=== PATIENT | male | born 1980 | race Caucasian/White ===

== ENCOUNTER 2016-11-21 12:39 | Emergency (ER) | payer MEDICAID ==
[~2016-11-21] VITALS: Ht 180.3 cm; Wt 144.0 kg
[2016-11-21 12:41] VITALS: Ht 180.3 cm; Wt 144.0 kg
[2016-11-21] MEDS ORDERED: BEN25 PO (14:29)
[2016-11-21] MEDS ORDERED: IBUP800T25 PO (14:29)
[2016-11-21] MEDS ORDERED: CEPH-443 PO (14:29)
[2016-11-21] MEDS ORDERED: SULF1TAB31 PO (14:29)
--- NOTE | 2016-11-21 15:04 | ERD ---
ER Documentation Chief Complaint Date/Time DATE: 11/21/16 TIME: 15:01 Chief Complaint possible insect bite on rt arm and upper back HPI 36-year-old male with no significant past medical history presents the ED complaining of a possible insect bite vs. spider bite on his right arm and upper left back. States that he noticed yesterday. Reports that he has been applying alcohol. States that it is very itchy. Denies any abdominal pain, nausea, vomiting, diarrhea, loss of sensation, loss of range of motion, numbness or tingling. Denies any exposure to pets, new use of soaps, detergents. ROS All systems reviewed and are negative except as per history of present illness. Medications Home Meds Active Scripts Ibuprofen* (Motrin*) 800 Mg Tab, 800 MG PO Q6, #30 TAB take with food Prov:IVON LEON-C 11/21/16 Cephalexin* (Keflex*) 500 Mg Capsule, 500 MG PO QID for 7 Days, CAP Prov:IVON LEON PA-C 11/21/16 Sulfamethoxazole/Trimethoprim* (Bactrim Ds* Tablet) 1 Each Tablet, 1 TAB PO BID for 7 Days, #14 TAB Prov:IVON LEON-C 11/21/16 Diphenhydramine Hcl* (Benadryl*) 25 Mg Cap, 25 MG PO Q6 Y for ITCHING/RASH, #30 TAB Prov:IVON LEON-C 11/21/16 PMhx/Soc Medical and Surgical Hx: pt denies Medical Hx History of Surgery: Yes (APPENDECTOMY) Anesthesia Reaction: No Hx Alcohol Use: No Hx Substance Use: No Hx Tobacco Use: No Smoking Status: Never smoker Physical Exam Vitals Vital Signs Date Time Temp Pulse Resp B/P Pulse Ox O2 Delivery O2 Flow Rate FiO2 11/21/16 12:41 98.4 88 18 172/90 99 Physical Exam Const: Oof-[id number], well-nourished. In no acute distress. Head: Atraumatic, normocephalic Eyes: Normal Conjunctiva without injection ENT: Normal external ear, nose and mouth. Neck: Full range of motion. No meningismus. Resp: Clear to auscultation bilaterally. No wheezing, rhonchi, rales, or crackles. No accessory muscle use. No retractions. Cardio: Regular rate and rhythm, no murmurs Skin: No petechiae or rashes Back: No midline tenderness. No CVA tenderness. Ext: No cyanosis, or edema. Cap refill less than 2 seconds. Distal pulses intact bilaterally. 3 cm nonfluctuant and nonindurated erythematous blanching papule with a slight punctate noted of right arm and left upper back. No erythema, edema, purulent discharge, bleeding noted. Neur: Awake and alert. Normal gait and coordination. Muscle strength 5/5. Sensation intact bilaterally. Psych: Normal Mood and Affect Procedures/MDM This is a 36-year-old male patient with no significant past medical history presents to the ED complaining of an insect bite that started possibly yesterday on his right arm and left upper back. Patient is afebrile and nontoxic-appearing. Patient symptoms are likely due to a possible insect bite. Patient is afebrile and nontoxic-appearing. Patient has normal vital signs. Patient is appropriate for outpatient antibiotics. Low suspicion for scabies, SJS/TEN, erythema multiforme, sepsis, cellulitis, necrotizing fascitis, gangrene , meningococcemia or other emergent conditions. Discharge medications: Ibuprofen, Keflex, Bactrim, Benadryl Follow up with primary care physician in 1-2 days for a wound check. Instructed patient to return to the ED sooner for any worsening symptoms. Patient's questions were answered. Patient understood and agreed with discharge plan. Patient discharged stable. Departure Diagnosis: Primary Impression: Insect bite Encounter type: initial encounter Qualified Code: W57.XXXA - Insect bite, initial encounter Condition: Stable Patient Instructions: Insect Sting/Bite, Infected Referrals: [facility] YOU HAVE RECEIVED A MEDICAL SCREENING EXAM AND THE RESULTS INDICATE THAT YOU DO NOT HAVE A CONDITION THAT REQUIRES URGENT TREATMENT IN THE EMERGENCY DEPARTMENT. FURTHER EVALUATION AND TREATMENT OF YOUR CONDITION CAN WAIT UNTIL YOU ARE SEEN IN YOUR DOCTORS OFFICE WITHIN THE NEXT 1-2 DAYS. IT IS YOUR RESPONSIBILITY TO MAKE AN APPOINTMENT FOR FOLOW-UP CARE. IF YOU HAVE A PRIMARY DOCTOR --you should call your primary doctor and schedule an appointment IF YOU DO NOT HAVE A PRIMARY DOCTOR YOU CAN CALL OUR PHYSICIAN REFERRAL HOTLINE AT IF YOU CAN NOT AFFORD TO SEE A PHYSICIAN YOU CAN CHOSE FROM THE FOLLOWING [facility] [address] [facility] [address] [facility] [address] [facility] [address] [facility] [address] [facility]. [facility]. [address] [facility]. [facility] YOU HAVE RECEIVED A MEDICAL SCREENING EXAM AND THE RESULTS INDICATE THAT YOU DO NOT HAVE A CONDITION THAT REQUIRES URGENT TREATMENT IN THE EMERGENCY DEPARTMENT. FURTHER EVALUATION AND TREATMENT OF YOUR CONDITION CAN WAIT UNTIL YOU ARE SEEN IN YOUR DOCTORS OFFICE WITHIN THE NEXT 1-2 DAYS. IT IS YOUR RESPONSIBILITY TO MAKE AN APPOINTMENT FOR FOLOW-UP CARE. IF YOU HAVE A PRIMARY DOCTOR --you should call your primary doctor and schedule and appointment IF YOU DO NOT HAVE A PRIMARY DOCTOR YOU CAN CALL OUR PHYSICIAN REFERRAL HOTLINE AT . IF YOU CAN NOT AFFORD TO SEE A PHYSICIAN YOU CAN CHOSE FROM THE FOLLOWING [facility]: [facility] [address] [place] [address] [facility] [address] [place] [address] [facility] [address] [place] [address] [facility] URGENT C[facility]/SPECIALTIES Additional Instructions: Follow up in 2 days in your clinic for wound check. You have been given a medicine which may cause drowsiness (Benadryl).DO NOT DRIVE OR OPERATE DANGEROUS MACHINERY while taking this medicine! Call your primary care doctor TOMORROW for an appointment during the next 2-3 days.See the doctor sooner or return here if your condition worsens before your appointment time. IVON LEON PA-C November 21, 2016 15:04
== END 2016-11-21 14:39 | disposition home or self-care (01) ==
LOC: FTE 12:39
DX: S40.861A Insect bite (nonvenomous) of right upper arm, initial encounter (principal); S20.462A Insect bite (nonvenomous) of left back wall of thorax, initial encounter; W57.XXXA Bitten or stung by nonvenomous insect and other nonvenomous arthropods, initial encounter; Y92.9 Unspecified place or not applicable
CPT/HCPCS: 99284

== ENCOUNTER 2018-09-06 12:07 | Emergency (ER) | payer MEDICAID ==
[~2018-09-06] VITALS: Ht 180.3 cm; Wt 151.1 kg
[~2018-09-06 12:07] MED LIST: BEN25 PO; CEPH-443 PO; IBUP800T48 PO; SULF1TAB31 PO
[2018-09-06 12:21] VITALS: BP 169/93; PULSE 99; RESP 18; Ht 180.3 cm; Wt 151.1 kg
[2018-09-06] MEDS ORDERED: PSEU120T11 PO (13:55)
[2018-09-06] MEDS ORDERED: FLUT9.9S NASAL (13:55)
[2018-09-06] MEDS ORDERED: AMOX500C2 PO (13:55)
--- NOTE | 2018-09-06 13:59 | ERD ---
ER Documentation Chief Complaint Chief Complaint bilat ear pain x 1 weeks, sore throat HPI This is a 38-year-old male presents ED with complaints of bilateral ear pain times 1 week. Patient admits to sore throat, runny nose and postnasal drip. Patient admits to some cough in the morning. Denies shortness of breath, trouble breathing, chest pain, nausea, vomiting, diarrhea, constipation, neck pain and all other symptoms. No known drug allergies. ROS All systems reviewed and are negative except as per history of present illness. Medications Home Meds Active Scripts Fluticasone Propionate (Flonase Allergy Relief) 9.9 Ml [place].susp, 1 SPRAY NASAL BID, #1 BOTTLE TO EACH NOSTRIL Prov:RENO RENDON PA-C 09/06/18 Pseudoephedrine Hcl (Sudafe 12-Hour) 120 Mg Tablet.er, 120 MG PO BID PRN for CONGESTION for 5 Days, TAB.SA Prov:RENO RENDON PA-C 09/06/18 Amoxicillin* (Amoxicillin*) 500 Mg Cap, 500 MG PO TID for 10 Days, CAP Prov:RENO RENDONC 09/06/18 Ibuprofen* (Motrin*) 800 Mg Tab, 800 MG PO Q6, #30 TAB take with food Prov:IVON LEON PA-C 11/21/16 Cephalexin* (Keflex*) 500 Mg Capsule, 500 MG PO QID for 7 Days, CAP Prov:IVON LEON-C 11/21/16 Sulfamethoxazole/Trimethoprim* (Bactrim Ds* Tablet) 1 Each Tablet, 1 TAB PO BID for 7 Days, #14 TAB Prov:IVON LEON PA-C 11/21/16 Diphenhydramine Hcl* (Benadryl*) 25 Mg Cap, 25 MG PO Q6 PRN for ITCHING/RASH, #30 TAB Prov:IVON LEONC 11/21/16 PMhx/Soc History of Surgery: Yes (APPENDECTOMY) Anesthesia Reaction: No Hx Alcohol Use: No Hx Substance Use: No Hx Tobacco Use: No FmHx Family History: No diabetes Physical Exam Vitals Vital Signs Date Temp Pulse Resp B/P (MAP) Pulse Ox O2 O2 Flow FiO2 Time Delivery Rate 09/06/18 98.0 99 18 169/93 97 12:21 (118) Physical Exam Physical Exam Vitals signs: Reviewed by me. General: Well developed, well nourished, in no acute distress. Patient is awake and alert. Head: Normocephalic, atraumatic. Eyes: Normal conjunctiva, Pupils PERRLA, EOM intact grossly ENT: Pharynx is clear, Moist mucous membranes, external ears, nose and mouth normal, left tympanic membrane is visualized and is bulging and is erythematous, right tympanic membrane is not visualized due to cerumen in ear canal. Oropharynx is clear with no oropharyngeal erythema, no tonsillar adenopathy, exudate or erythema, normal nasal mucosa with copious amounts of clear rhinorrhea, Respiratory: Clear to auscultation bilaterally with no wheezing, rhonchi, rales, no distress Cardiovascular: RRR, no murmurs, rubs, or gallops Skin: warm and dry, No rash Psych: Normal mood Procedures/MDM ER COURSE: The patient was stable throughout ED course. I kept the patient and/or family informed of laboratory and diagnostic imaging results throughout the emergency room course. The patient was promptly evaluated and a treatment plan was devised based on H&P and other data. This plan was discussed with the patient who agreed and had no further questions or concerns prior to discharge. MEDICAL DECISION MAKIN-year male presents ED with ear pain times 1 week. Physical examination is remarkable for otitis media and rhinorrhea. At this time there is no ENT emergency. No evidence of retropharyngeal abscess, mastoiditis, peritonsillar abscess, liquids, epiglottitis, sepsis, meningitis, among others. Vitals are stable patient can be managed with close outpatient follow-up. Advised patient follow-up with primary care next 48 hours. Return to ED with any worsening symptoms DISPOSITION PLAN: We discussed follow up with the patient's primary care doctor within 24 to 48 hours. Patient counseled regarding my diagnostic impression and care plan. Prior to discharge all questions answered. Pt agrees with treatment plan and understands strict return precautions. Precautionary instructions provided including instructions to return to the ER if not improving or for any worsening or changing symptoms or concerns. SPECIALIST FOLLOW UP RECOMMENDED: None Patient has been advised to follow up with primary care in 1-2 days. Disclaimer: Inadvertent spelling and grammatical errors are likely due to EHR/d ictation software use and do not reflect on the overall quality of patient care. Also, please note that the electronic time recorded on this note does not necessarily reflect the actual time of the patient encounter. Blood Pressure Assessment: Patient's blood pressure was elevated (>120/80) but appears stable without evidence of hypertension emergency or urgency. The patient was counseled about the risks of hypertension and urged to pursue outpatient monitoring and therapy within a week with their primary care physician. Departure Diagnosis: Primary Impression: Otitis media Otitis media type: unspecified Chronicity: acute Qualified Codes: H66.90 - Otitis media, unspecified, unspecified ear Condition: Stable Patient Instructions: Otitis Media, Abx Tx (Adult) Referrals: [facility] YOU HAVE RECEIVED A MEDICAL SCREENING EXAM AND THE RESULTS INDICATE THAT YOU DO NOT HAVE A CONDITION THAT REQUIRES URGENT TREATMENT IN THE EMERGENCY DEPARTMENT. FURTHER EVALUATION AND TREATMENT OF YOUR CONDITION CAN WAIT UNTIL YOU ARE SEEN IN YOUR DOCTORS OFFICE WITHIN THE NEXT 1-2 DAYS. IT IS YOUR RESPONSIBILITY TO MAKE AN APPOINTMENT FOR FOLOW-UP CARE. IF YOU HAVE A PRIMARY DOCTOR --you should call your primary doctor and schedule an appointment IF YOU DO NOT HAVE A PRIMARY DOCTOR YOU CAN CALL OUR PHYSICIAN REFERRAL HOTLINE AT IF YOU CAN NOT AFFORD TO SEE A PHYSICIAN YOU CAN CHOSE FROM THE FOLLOWING [facility] [address] [facility]. [facility] [address] [facility] [facility] [address] [facility] [address] [facility] [address] [facility]. [facility] [address] Additional Instructions: Patient advised to return to the ED immediately for new or worsening symptoms. Patient advised to follow up with primary care provider in the next 24-48 hours. Patient verbalized understanding and agrees with treatment plan and course of action. If patient has no primary care they may follow up with one of the [facility] listed on the following page or one of the options listed below [facility] + [facility] [address] [place] [address] or [facility] [address] [place] [address] or [facility] [address] [place] [address] RENO RENDON PA-C Sep 06, 2018 13:59
== END 2018-09-06 14:45 | disposition home or self-care (01) ==
LOC: FTE 12:07
DX: H66.92 Otitis media, unspecified, left ear (principal)
CPT/HCPCS: 99283